=== PATIENT | female | born 1990 | race Caucasian/White ===

== ENCOUNTER → 2020-10-11 16:26 | Outpatient (CLI) | payer MEDICAID, SELFPAY ==
[2020-10-11 14:23] VITALS: BMI 37.1
[2020-10-15 20:12] LABS: HPV Reflexed? NOT INDICATED
== END ==
PROVIDERS: Referring Provider Nurse Practitioner Women's Health; Visit Provider Nurse Practitioner Women's Health
DX: Z12.4 Encounter for screening for malignant neoplasm of cervix (principal)
CPT/HCPCS: 88175; G0145

== ENCOUNTER 2023-03-02 10:30 | Emergency (ER) | payer MEDICAID, SELFPAY ==
[2023-03-02 10:31] VITALS: BP 220/140; PULSE 121; RESP 22; TEMP 36.6; O2SAT 97; BMI 38.7
--- NOTE | 2023-03-02 10:38 | ED.VIS.FEGU ---
HPI HPI - Female History of Present Illness Chief Complaint: Female C/O Informant: patient Narrative Narrative: Healthy 33-year-old monogamous female here in the emergency department with her significant other who was being seen for epididymitis and tested positive for chlamydia. She is asymptomatic and here for treatment and evaluation. She has no history of any known STDs, she gets regular STD testing at her [facility] since she is sexually active and has never tested positive. PFSH PFSH Medical History no medical history no medical history Home Medications levonorgestrel 21 mcg/24 hours (8 yrs) 52 mg intrauterine device (Mirena) 1 device intrauterine ONCE 10/11/20 [History Last Taken Unknown] doxycycline monohydrate 100 mg capsule 100 mg PO BID #14 CAPSULES 03/02/23 [Rx Last Taken Unknown] Allergy/AdvReac Type Severity Reaction Status Date / Time No Known Allergies Allergy Verified 03/02/23 10:31 Family History (Updated 10/11/20 @ 14:21 by Shirley Garcia) Grandmother Breast cancer Social History household members: spouse and children number of children: 1 current occupational status: employed current occupation: [employer] history of recent travel: No sexually active: Yes Smoking Status: Never smoker alcohol intake: current alcohol intake frequency: holidays/special occasions only substance use type: does not use what type of physical activity do you participate in: aerobics seatbelt use: always do you feel safe at home: Yes additional social history: - Ingrid Manrique ANDREA ROS ED Constitutional Constitutional ED: Denies chills or fever(s) Eyes Eyes: Denies change in vision or diplopia ENT ENT ED: Denies rhinorrhea or sore throat Cardiovascular Cardiovascular: Denies chest pain or palpitations Respiratory/Chest Respiratory/Chest: Denies cough or dyspnea Gastrointestinal Gastrointestinal: Denies abdominal pain, diarrhea, nausea or vomiting Genitourinary Genitourinary ED: Denies dysuria or hematuria Musculoskeletal Musculoskeletal: Denies back pain or neck pain Integumentary Denies abscess or rash Neurologic Neurologic: Denies headache(s), paresthesias or weakness Psychiatric Psychiatric: Denies anxiety or suicidal thoughts EXAM Physical Exam Const Vital Signs: 03/02/23 10:31 Temperature 98 F Temperature Source Temporal Pulse Rate 121 H Respiratory Rate 22 H Blood Pressure 220/140 H Blood Pressure Mean 166 Pulse Ox 97 Oxygen Delivery Method Room Air Positive well nourished and well developed General Appearance ED: well developed and NAD GI non-tender and non-distended Palpation: soft Neuro oriented x3, CN's II-XII intact bilaterally and no sensory deficits noted Sensorium / Orientation: awake and alert Motor Exam: strength 5/5 throughout Skin no rashes or lesions noted and no wounds MDM MDM MDM Narrative Medical decision making narrative: Urine GC and chlamydia sent, and will place her on doxycycline for empiric chlamydia coverage. She is hypertensive and tachycardic, but she signed in and received vital signs immediately after I told her significant other that he had chlamydia and I think that she is anxious. Staff will recheck her vital signs prior to discharge. Lab Data Attestation: I reviewed the patient's lab results. Labs: Laboratory Results - last 24 hr 03/02/23 11:12 Chlam trachomat DNA PCR POSITIVE H N.gonorrhoeae DNA (PCR) Negative Discharge Plan Triage Chief Complaint: Female C/O ED Provider: Souleymane Lindsey Dx/Rx/DC Orders Clinical Impression: Exposure to chlamydia, Episode of hypertension Instructions: ED Chlamydia, Treated (Female) Prescriptions: New doxycycline monohydrate 100 mg capsule 100 mg PO BID Qty: 14 0RF No Action levonorgestrel 20 mcg/24 hours (6 yrs) 52 mg intrauterine device 20 mcg/24 hours (6 yrs) 52 mg intrauterine device 1 device INTRA-UTER ONCE Label Comments: placed 09/2015 Rx Instructions: as a single dose Primary Care Provider: Care Physician,No Primary Referrals: Doctor,Your [Non-Staff] - As Needed (Follow-up with your doctor at some point to recheck your blood pressure within the next several weeks) Disposition Disposition: Home, Self Care Discharge Date/Time: 03/02/23 11:13
[2023-03-02] MEDS: Doxycycline 100 MG CAPSULE PO (11:13)
[2023-03-02 14:03] LABS: Chlamydia Trachomatis by PCR POSITIVE (Negative); Neisserai gonorrhoeae by PCR Negative (Negative); Probe Check PASS; Sample Adequacy Control PASS; Specimen Processing Control PASS
--- NOTE | 2023-03-02 15:14 | ED.RN ---
PT CALLED BY THIS RN AND INFORMED OF POSITIVE CHLAMYDIA RESULTS. PT TO CONTINUE WITH PRESCRIBED TX AND FOLLOW UP WITH PCP.
== END 2023-03-02 11:13 | disposition home or self-care (01) ==
LOC: ED 10:52
PROVIDERS: Emergency Provider Emergency Medicine; Visit Provider Emergency Medicine
DX: Z20.2 Contact with and (suspected) exposure to infections with a predominantly sexual mode of transmission (principal); I10 Essential (primary) hypertension
CPT/HCPCS: 87491; 87591; 99283

== ENCOUNTER 2024-05-15 13:00 | Emergency (ER) | payer OTHER, SELFPAY ==
[2024-05-15 13:02] VITALS: BP 180/99; PULSE 116; RESP 17; TEMP 35; O2SAT 98; BMI 38.6
[2024-05-15 14:39] LABS: Internal QC Validated? YES +Cl - CLEAR BKGD; Pregnancy, Urine Negative Negative; Record Kit Lot#,Urine Preg 772476
[2024-05-15 15:07] VITALS: BP 165/80; PULSE 87; RESP 16; O2SAT 98
--- NOTE | 2024-05-15 16:07 | EDS_ITS ---
HPI History of Present Illness Chief Complaint: Burn Narrative Narrative: Patient is a 34-year-old female with no known significant past medical history who presented to the emergency department after work with a chief complaint of being electrocuted by a toaster at work. She states that she was attempting to unplug the toaster when she noted that she got electrocuted in her right thumb. She states that this lasted approximately 5 seconds and did not pass out. She states that she is unsure when her last tetanus shot was. Patient states that she was extremely anxious when she arrived here to the emergency department secondary to being in the hospital. Patient states that she has some pain in her right thumb rates as a 3 out of 10. PFSH PFSH Home Medications ?Medication ?Instructions ?Recorded ?Last Taken ?Type levonorgestrel 21 mcg/24 hr (up to 1 device intrauterine ONCE 10/11/20 Unknown History 8 years) 52 mg intrauterine device (Mirena) doxycycline monohydrate 100 mg 100 mg PO BID #14 CAPSULES 03/02/23 Unknown Rx capsule Allergy/AdvReac Type Severity Reaction Status Date / Time No Known Allergies Allergy Verified 05/15/24 13:05 Family History Grandmother Breast cancer Social History household members: spouse and children number of children: 1 current occupational status: employed current occupation: [employer] history of recent travel: No sexually active: Yes Smoking Status: Never smoker alcohol intake: current alcohol intake frequency: holidays/special occasions only substance use type: does not use what type of physical activity do you participate in: aerobics seatbelt use: always do you feel safe at home: Yes additional social history: - Ingrid Manrique ROS ROS ED ROS Narrative Constitutional: Denies headaches, lightheadedness, dizziness, fevers, chills Eyes: Denies change of double vision blurry vision Cardiovascular: Denies chest pain or palpitations Respiratory: Denies coughing wheezing shortness of breath Abdomen: Denies abdominal pain nausea vomit diarrhea : Denies any urinary symptoms Neurological: Denies any numbness, weakness, tingling Musculoskeletal: Complains of right thumb pain as noted above Skin: Complains of a small blister on right thumb from the injury EXAM Physical Exam Narrative Exam Narrative: General: Patient lying in bed rest comfortably did not appear to be acute distress Head: Atraumatic, normocephalic Eyes: PERRL bilaterally, EOMI bilateral, no conjunctival injection noted Neck: Soft, supple, trachea midline Cardiovascular: Regular rate and rhythm no murmurs gallops rubs noted Respiratory: Clear to auscultation bilaterally Abdomen: Soft, nondistended, nontender to palpation Extremities: +5/5 strength noted in the bilateral upper and lower extremities, no pedal edema on exam, radial pulses +2/4 in the bilateral upper extremities patient was able to be given thumbs up sign, give the okay sign and oppose her thumb to her pinky bilaterally without difficulty Neurological: Patient following commands knew that she is at [facility] year is 2023. Sensation grossly intact in the median ulnar and radial nerve distributions Musculoskeletal: Compartments soft and compressible in the bilateral upper extremities Skin: Warm, dry, patient has small superficial blister noted to the volar aspect of her thumb no surrounding erythema no signs of infection Const Vital Signs: 05/15/24 13:02 05/15/24 13:06 05/15/24 15:07 Temperature 95 F L Temperature Source Temporal Pulse Rate 116 H 87 Respiratory Rate 17 16 Respiratory Effort Normal Non-Labored Respiratory Depth Normal Respiratory Pattern Normal Blood Pressure 180/99 H 165/80 H Blood Pressure Mean 126 108 Pulse Ox 98 98 Oxygen Delivery Method Room Air Room Air MDM MDM MDM Narrative Medical decision making narrative: Patient is a 34-year-old female who presented to the emergency department with a chief complaint of being electrocuted by a toaster while at work. Patient will have a tetanus shot updated here in the emergency department. Patient's EKG reviewed and showed normal sinus rhythm with a rate of 83 bpm. test was negative. Patient's vital signs were repeated and she was noted to be hypertensive however she is asymptomatic and her heart rate normalized 87 bpm. She was encouraged to keep a close eye on her blood pressure and encouraged follow-up with a primary care physician for which she will be referred to. Patient was encouraged return with worsening symptoms or other concerns. Patient would like to go home at this point time all question concerns answered she was discharged home in stable condition. Lab Data Labs: Laboratory Results - last 24 hr 05/15/24 14:17 Urine Test Negative Discharge Plan Triage Chief Complaint: Burn ED Provider: Godwin,Ten Dx/Rx/DC Orders Clinical Impression: Superficial burn of right thumb Prescriptions: No Action Mirena 20 mcg/24 hours (6 yrs) 52 mg intrauterine device 1 device INTRA-UTER ONCE Patient Comments: placed 09/2015 Rx Instructions: as a single dose doxycycline monohydrate 100 mg capsule 100 mg PO BID Qty: 14 0RF Primary Care Provider: Care Physician,No Primary Referrals: Sara Parish MD [Med Staff - Athletic Coach] - Care Physician,No Primary [Primary Care Provider] - Activity Restrictions/Additional Instructions: Return with worsening symptoms or other concerns. Follow-up with primary care physician for which she referred to. Tetanus shot was updated here today. Use Tylenol ibuprofen and ice for pain control. Print Language: Upper Sorbian Disposition Disposition: Home, Self Care
[2024-05-15] MEDS: Diphth,Pertuss(Acell),Tet Vac 0.5 ML Vial IM (16:22)
[2024-05-15 16:26] VITALS: BP 149/76; PULSE 98; RESP 14; TEMP 36.6; O2SAT 100
== END 2024-05-15 16:27 | disposition home or self-care (01) ==
PROVIDERS: Emergency Provider Emergency Medicine; Referring Provider Emergency Medicine; Visit Provider Emergency Medicine
DX: T23.111A Burn of first degree of right thumb (nail), initial encounter (principal); X58.XXXA Exposure to other specified factors, initial encounter
CPT/HCPCS: 81025; 90715; 93005; 99282

== ENCOUNTER → 2024-09-03 | Outpatient (CLI) | payer BC, SELFPAY ==
[2024-09-08 09:22] LABS: Chlamydia By Nucleic Acid AMP Negative (Negative); Gonococcus By Nucleic Acid AMP Negative (Negative)
[2024-09-11 11:08] LABS: HPV APTIMA, High Risk Negative (Negative)
== END | disposition home or self-care (01) ==
LOC: LABSPEC 14:05
PROVIDERS: Referring Provider Nurse Practitioner Women's Health; Visit Provider Nurse Practitioner Women's Health
DX: Z12.4 Encounter for screening for malignant neoplasm of cervix (principal); Z11.3 Encounter for screening for infections with a predominantly sexual mode of transmission
CPT/HCPCS: 87491; 87591; 87624; 88175; G0145